=== PATIENT | female | born 1950 | race Caucasian/White ===

== ENCOUNTER 2019-09-14 22:10 | Emergency (ER) | payer OTHER ==
[~2019-09-14] VITALS: Ht 170.2 cm; Wt 68.0 kg
[~2019-09-14 22:10] MED LIST: GABAPENTIN600 MG; LOSARTAN POTASS25 MG; METFORMIN HCL500 MG; SIMVASTATIN10 MG; SYNTHROID50 MCG
[2019-09-14] MEDS ORDERED: METFORMIN HCL1000 MG (22:37)
[2019-09-14] MEDS ORDERED: LANTUS SOL100 UNIT/1 (22:38)
[2019-09-14] MEDS ORDERED: HUMALOG100 UNIT/1 (22:38)
[2019-09-14] MEDS ORDERED: LIPITOR40 MG (22:39)
[2019-09-14] MEDS ORDERED: SYNTHROID112 MCG (22:39)
== END 2019-09-14 23:49 | disposition home or self-care (01) ==
LOC: ER 22:10
DX: S30.0XXA Contusion of lower back and pelvis, initial encounter (principal); S50.01XA Contusion of right elbow, initial encounter; T74.11XA Adult physical abuse, confirmed, initial encounter; Y04.2XXA Assault by strike against or bumped into by another person, initial encounter; Y07.01 Husband, perpetrator of maltreatment and neglect; Y93.89 Activity, other specified; Y92.018 Other place in single-family (private) house as the place of occurrence of the external cause; Y99.8 Other external cause status